=== PATIENT | female | born 1985 | race Caucasian/White ===

== ENCOUNTER 2016-06-09 16:40 | Emergency (ER) | payer SELFPAY ==
--- NOTE | 2016-06-09 17:04 | ER Document Report ---
ED Medical Screen (RME) - General Stated Complaint: INJURED RIGHT THUMB Time seen by provider: 17:01 Mode of Arrival: Ambulatory Information source: Patient Notes: Patient states that she was playing with her child last night when she accidentally jammed her right thumb. Complains of pain to the thumb and is unable to move it. Thumb is swollen but no bruising. I have greeted and performed a rapid initial assessment of this patient. A comprehensive ED assessment and evaluation of the patient, analysis of test results and completion of the medical decision making process will be conducted by additional ED providers. - Related Data Allergies/Adverse Reactions: No Known Allergies Allergy (Verified 06/09/16 17:01) Past Medical History Pulmonary Medical History: Reports: Hx Bronchitis Renal/ Medical History: Denies: Hx Kidney Stones Musculoskeltal Medical History: Denies Hx Fibromyalgia Traumatic Medical History: Denies: Hx Fractures Infectious Medical History: Denies: Hx HIV Past Surgical History: Reports: Hx Section - Immunizations Hx Diphtheria, Pertussis, Tetanus Vaccination: No Physical Exam - Extremities Notes: Right thumb with mild edema and tender to touch. Neurovascular and sensation intact. No bruising noted.
[2016-06-09] MEDS ORDERED: HYDROCODONE/ACETAMINOPHEN 5-325 MG 6 TAB/DSPK PO PRN (18:38)
--- NOTE | 2016-06-09 18:43 | ER Document Report ---
ED Hand/Wrist Injury - General Chief Complaint: Thumb Injury Stated Complaint: INJURED RIGHT THUMB Time seen by provider: 18:38 Mode of Arrival: Ambulatory Information source: Patient TRAVEL OUTSIDE OF THE [place] IN LAST 30 DAYS: No - HPI Patient complains to provider of: right thumb injury Injury to: Thumb Onset: Yesterday Where: Home Timing: Constant Quality of pain: Achy, Fullness, Pressure Severity: Moderate Pain Level: 3 Context: Other Notes: Patient is a 30-year-old female presents to the emergency room complaining of right thumb injury that occurred yesterday evening, states she was using her hands to get up off the floor, when her hand slipped off the edge of the table causing her to bend her thumb backwards, she's had swelling and pain throughout the day today, denies any other pain or injury - Related Data Allergies/Adverse Reactions: No Known Allergies Allergy (Verified 06/09/16 17:01) Past Medical History - General Information source: Patient - Social History Smoking Status: Never Smoker Chew tobacco use (# tins/day): No Frequency of alcohol use: None Drug Abuse: None Family History: None Patient has suicidal ideation: No Patient has homicidal ideation: No Pulmonary Medical History: Reports: Hx Bronchitis Renal/ Medical History: Denies: Hx Kidney Stones, Hx Peritoneal Dialysis Musculoskeltal Medical History: Denies Hx Fibromyalgia Traumatic Medical History: Denies: Hx Fractures Infectious Medical History: Denies: Hx HIV Past Surgical History: Reports: Hx Section - Immunizations Hx Diphtheria, Pertussis, Tetanus Vaccination: No Review of Systems - Review of Systems Constitutional: No symptoms reported EENT: No symptoms reported Cardiovascular: No symptoms reported Respiratory: No symptoms reported Gastrointestinal: No symptoms reported Genitourinary: No symptoms reported Female Genitourinary: No symptoms reported Musculoskeletal: See HPI Skin: No symptoms reported Hematologic/Lymphatic: No symptoms reported Neurological/Psychological: No symptoms reported -: Yes All other systems reviewed and negative Physical Exam - Vital signs Interpretation: Normal - Notes Notes: - General General appearance: Appears well, Alert In distress: None - HEENT Head: Normocephalic, Atraumatic Eyes: Normal Conjunctiva: Normal Extraocular movements intact: Yes Eyelashes: Normal Pupils: PERRL - Respiratory Respiratory status: No respiratory distress - Cardiovascular Rhythm: Regular - Abdominal Inspection: Normal - Back Back: Normal - Extremities General upper extremity: Right hand with swelling and tenderness to the thenar eminence, pain with range of motion testing of the thumb, distal sensation and motor is intact, with brisk capillary refill and 2+ radial pulses General lower extremity: Normal inspection - Neurological Neuro grossly intact: Yes Orientation: AAOx4 [place] Coma Scale Eye Opening: Spontaneous [place] Coma Scale Verbal: Oriented [place] Coma Scale Motor: Obeys Commands [place] Coma Scale Total: 15 - Psychological Associated symptoms: Normal affect, Normal mood - Skin Skin Temperature: Warm Skin Moisture: Dry Skin Color: Normal Course - Re-evaluation Re-evalutation: 06/09/16 18:40 Imaging shows no evidence of injury, I suspect soft tissue injury at the base of the thumb, patient has a commercial splint that she purchased this morning that she has been wearing throughout the day, she was advised to continue wearing this, apply ice and elevate, follow-up with orthopedics in 2-3 days, she will be provided with anti-inflammatory pain medication as well, patient advised to return if symptoms worsen, patient acknowledges understanding and agreement with this plan - Diagnostic Test Radiology reviewed: Image reviewed, Reports reviewed Discharge - Discharge Clinical Impression: Sprain of right thumb Qualifiers: Encounter type: initial encounter Sprain of finger site: metacarpophalangeal joint Qualified Code(s): S63.641A - Sprain of metacarpophalangeal joint of right thumb, initial encounter Condition: Stable Disposition: HOME, SELF-CARE Instructions: Sprained Thumb ([facility]) Additional Instructions: Follow up with your primary care provider and an orthopedic surgeon in one to 2 days. Return to the emergency room immediately if symptoms worsen or any additional concerns. Ice and elevate the affected extremity. Prescriptions: Hydrocodone/Acetaminophen [Hydrocodon-Acetaminophen 5-325] 1 each PO Q6 #20 tablet Ibuprofen [Motrin 600 Mg Tablet] 600 mg PO TID #30 tablet Referrals: MAGGY BLACKWOOD MD [ACTIVE STAFF] - Follow up as needed
== END 2016-06-09 19:17 | disposition home or self-care (01) ==
LOC: ER 16:40
DX: S63.641A Sprain of metacarpophalangeal joint of right thumb, initial encounter (principal); X50.0XXA Overexertion from strenuous movement or load, initial encounter; Y93.89 Activity, other specified; Y92.009 Unspecified place in unspecified non-institutional (private) residence as the place of occurrence of the external cause
CPT/HCPCS: 99283

== ENCOUNTER 2016-06-15 12:15 | Emergency (ER) | payer SELFPAY ==
[2016-06-15 12:24] VITALS: BP 147/99
--- NOTE | 2016-06-15 14:11 | ER Document Report ---
HPI - HPI Patient complains to provider of: right thumb pain Onset: Last week Onset/Duration: Persistent Quality of pain: Achy Pain Level: 4 Context: Patient complains of injuring her right thumb last week. Patient states that she put her weight on a table and slipped causing her thumb to bend backwards. Patient was seen here in the emergency department on 06/09/2016 and advised to return if she had any continued pain or problems. Patient states she is having problems with her Medicaid and her primary doctor would not see her. Patient states that she does not have money to pay out of pocket to see an orthopedic doctor. Patient denies any new injury. Patient is right-hand dominant. Associated Symptoms: Other - Right thumb pain Exacerbated by: Movement Relieved by: Denies Similar symptoms previously: No Recently seen / treated by doctor: Yes - ROS ROS below otherwise negative: Yes Systems Reviewed and Negative: Yes All other systems reviewed and negative - CONSTITUTIONAL Constitutional: DENIES: Fever, Chills - CARDIOVASCULAR Cardiovascular: DENIES: Chest pain - MUSCULOSKELETAL Musculoskeletal: REPORTS: Extremity pain - Right thumb pain, Swelling - Right hand - DERM Skin Color: Normal Skin Problems: None Past Medical History - General Information source: Patient - Social History Smoking Status: Never Smoker Frequency of alcohol use: None Drug Abuse: None Occupation: aestetician Family History: None - Medical History Medical History: Negative Pulmonary Medical History: Reports: Hx Bronchitis Renal/ Medical History: Denies: Hx Kidney Stones, Hx Peritoneal Dialysis Musculoskeltal Medical History: Denies Hx Fibromyalgia Traumatic Medical History: Denies: Hx Fractures Infectious Medical History: Denies: Hx HIV Past Surgical History: Reports: Hx Section - Immunizations Hx Diphtheria, Pertussis, Tetanus Vaccination: No Vertical Provider Document - CONSTITUTIONAL Agree With Documented VS: Yes Exam Limitations: No Limitations General Appearance: WD/WN, No Apparent Distress - INFECTION CONTROL TRAVEL OUTSIDE OF THE [place] IN LAST 30 DAYS: No - HEENT HEENT: Atraumatic, Normocephalic - NECK Neck: Normal Inspection - RESPIRATORY Respiratory: No Respiratory Distress O2 Sat by Pulse Oximetry: 97 - CARDIOVASCULAR Pulses: Normal: Radial - BACK Back: Normal Inspection - MUSCULOSKELETAL/EXTREMETIES Musculoskeletal/Extremeties: Tender - Tenderness along thenar eminence of right hand, Edema - 1+ edema to thenar eminence Notes: Patient with decreased strength in flexion and extension involving right thumb 3 /5, patient unable to fully extend right thumb against resistance. - NEURO Level of Consciousness: Awake, Alert, Appropriate Motor/Sensory: No Sensory Deficit - DERM Integumentary: Warm, Dry Course - Re-evaluation Re-evalutation: 06/15/16 14:[address] Narayan regarding patient presentation, recommends outpatient orthopedic follow-up with hand specialist. Patient encouraged to follow-up with orthopedic DrJeremy for further evaluation. - Vital Signs Vital signs: Temp Pulse Resp BP Pulse Ox 98.2 F 114 H 14 147/99 H 97 06/15/16 12:23 06/15/16 12:23 06/15/16 12:23 06/15/16 12:23 06/15/16 12:23 - Diagnostic Test Radiology reviewed: Reports reviewed - Reviewed x-ray from previous ER visit Discharge - Discharge Clinical Impression: Sprain of right thumb Qualifiers: Encounter type: initial encounter Sprain of finger site: unspecified site Qualified Code(s): S63.601A - Unspecified sprain of right thumb, initial encounter Condition: Stable Disposition: HOME, SELF-CARE Instructions: Sprained Thumb ([facility]), Splint Precautions ([facility]), Ultram ([facility]) Additional Instructions: Return immediately for any new or worsening symptoms Followup with your primary care provider, call tomorrow to make a followup appointment Follow up with orthopedic doctor, call today to make a follow-up appointment. Let them know you were seen in the emergency department and need follow-up. Prescriptions: Tramadol HCl [Ultram 50 mg Tablet] 50 mg PO ASDIR PRN #20 tablet PRN Reason: Referrals: SUZANNE LANGSTON DO [ACTIVE STAFF] - Follow up tomorrow
== END 2016-06-15 14:13 | disposition home or self-care (01) ==
LOC: ER 12:15
DX: S63.601A Unspecified sprain of right thumb, initial encounter (principal); M79.644 Pain in right finger(s); W01.0XXA Fall on same level from slipping, tripping and stumbling without subsequent striking against object, initial encounter
CPT/HCPCS: 99283

== ENCOUNTER → 2017-05-17 | Outpatient (CLI) | payer MEDICAID ==
--- NOTE | 2017-05-17 22:37 | EKG REPORT ---
SEVERITY:- NORMAL ECG - SINUS RHYTHM : Confirmed by: Tala Ro 17-May-2017 22:36:43
== END ==
LOC: OD 12:55
PROVIDERS: ATTEND Physician Assistant
DX: R00.0 Tachycardia, unspecified (principal)
CPT/HCPCS: 93005; 93010

== ENCOUNTER 2017-08-08 20:16 | Emergency (ER) | payer SELFPAY ==
[2017-08-08 20:23] VITALS: BP 131/74
[2017-08-08] MEDS ORDERED: ONDANSETRON 4 MG TAB.RAPDIS PO ONE (21:58)
[2017-08-08] MEDS ORDERED: HYDROCODONE/ACETAMINOPHEN 5-325 MG TABLET PO ONE (21:58)
--- NOTE | 2017-08-08 21:59 | ER Document Report ---
HPI - HPI Patient complains to provider of: fall, pain Pain Level: 4 Context: Patient is a 31-year-old female who comes emergency department for chief complaint of fall, she states she tripped on steps and fell forward, she states this happened about 22 hours ago, she states she fell and landed on her left wrist causing pain and swelling, she also hit her forehead on the step causing a bruise to her forehead and pain in her neck. She denies any other injuries. She states that she went home and slept, then afterwards when the swelling became worse she became more concerned. She denies vomiting, loss of consciousness with the fall, worsening headache, focal numbness or weakness. LMP within the past month. - REPRODUCTIVE Reproductive: REPORTS: : Past Medical History - General Information source: Patient - Social History Smoking Status: Never Smoker Frequency of alcohol use: None Drug Abuse: None Lives with: Family Family History: None Pulmonary Medical History: Reports: Hx Bronchitis Renal/ Medical History: Denies: Hx Kidney Stones, Hx Peritoneal Dialysis Musculoskeltal Medical History: Denies Hx Fibromyalgia Traumatic Medical History: Denies: Hx Fractures Infectious Medical History: Denies: Hx HIV Past Surgical History: Reports: Hx Section - Immunizations Hx Diphtheria, Pertussis, Tetanus Vaccination: No Vertical Provider Document - CONSTITUTIONAL General Appearance: WD/WN, No Apparent Distress - INFECTION CONTROL TRAVEL OUTSIDE OF THE [place] IN LAST 30 DAYS: No - HEENT HEENT: Normal ENT Exam - Unremarkable ENT exam. negative: Atraumatic - Forehead contusion, otherwise no signs of trauma to the head - NECK Neck: Normal Inspection - RESPIRATORY Respiratory: Breath Sounds Normal, No Respiratory Distress - CARDIOVASCULAR Cardiovascular: Regular Rate, Regular Rhythm - GI/ABDOMEN Gastrointestinal: Abdomen Soft, Abdomen Non-Tender - BACK Back: negative: Normal Inspection - Generalized tenderness over the cervical area, nonspecific, no midline tenderness otherwise, no saddle anesthesia, no signs of trauma - MUSCULOSKELETAL/EXTREMETIES Musculoskeletal/Extremeties: MAEW, FROM, Tender - Ecchymosis over the left volar wrist, pain with range of motion, no snuffbox tenderness, normal capillary refill and sensation, normal upper extremity exam otherwise, normal lower extremity exam - NEURO Level of Consciousness: Awake, Alert, Appropriate - DERM Integumentary: Warm, Dry, No Rash Course - Re-evaluation Re-evalutation: Patient with ecchymosis over the volar aspect of the right wrist, x-ray suggestive of small fracture, no neurovascular compromise, discussed with patient, splint placed, orthopedic follow-up discussed and provided. Provided with pain medication, patient was initially tachycardic, this resolved. Patient complaining of pain all over her neck although there is no specific midline tenderness, no neurological deficits, x-ray is unremarkable. She has a small contusion on her forehead but she is now 24 hours post injury and not complaining of any headache, has no concerning reported neurological symptoms, very low suspicion of intracranial pathology. - Vital Signs Vital signs: Temp Pulse Resp BP Pulse Ox 98.8 F 117 H 18 131/74 H 97 08/08/17 20:21 08/08/17 20:21 08/08/17 20:21 08/08/17 20:21 08/08/17 20:21 Procedures - Immobilization left wrist Pre-Proc Neuro Vasc Exam: Normal Immobilizer type: Volar splint Performed by: PCT Post-Proc Neuro Vasc Exam: Normal Alignment checked and good: Yes Discharge - Discharge Clinical Impression: Neck pain Fall Qualifiers: Encounter type: initial encounter Qualified Code(s): W19.XXXA - Unspecified fall, initial encounter Forehead contusion Qualifiers: Encounter type: initial encounter Qualified Code(s): S00.83XA - Contusion of other part of head, initial encounter Left wrist fracture Qualifiers: Encounter type: initial encounter Fracture type: closed Qualified Code(s): S62.102A - Fracture of unspecified carpal bone, left wrist, initial encounter for closed fracture Condition: Stable Disposition: HOME, SELF-CARE Additional Instructions: There appears to be a small fracture in the bone of your left wrist called the trapezium. As result wear the splint, follow-up with the orthopedics referral, call Wednesday to set up your appointment. Take pain medication if needed. Your neck x-rays are normal, your examination does not show any concerning abnormalities otherwise, you should have some soreness in your neck and shoulders from the fall which will probably increase for about a day and then should gradually decline. Return for any concerning symptoms including numbness, passing out, vomiting, severe swelling or pain of the wrist, or any other concerning or worsening symptoms. Prescriptions: Morphine Sulfate [Morphine Ir 15 Mg Tablet] 15 mg PO Q4HP PRN #12 tablet PRN Reason: Referrals: DEBORAH CAPPS MD [ACTIVE STAFF] - Follow up tomorrow
--- NOTE | 2017-08-08 22:41 | RADIOLOGY REPORT (SQ) ---
EXAM DESCRIPTION: CERV SP 4 OR 5 VIEWS COMPLETED DATE/TIME: 08/08/2017 10:23 pm REASON FOR STUDY: fall, pain COMPARISON: None. NUMBER OF VIEWS: Five views. TECHNIQUE: AP, lateral, obliques and odontoid radiographic images acquired of the cervical spine. LIMITATIONS: None. FINDINGS: MINERALIZATION: Normal. ALIGNMENT: Anatomic. VERTEBRAE: Vertebral bodies of normal height. DISCS: No significant osteophytes or sclerosis. Disc height maintained. FORAMINA: No osteophytes or foraminal narrowing. LATERAL AND POSTERIOR ELEMENTS: Facets, lateral masses and spinous processes without significant find ings. HARDWARE: None in the spine. SOFT TISSUES: No masses or calcifications. Lung apices clear. OTHER: No other significant finding. IMPRESSION: NO SIGNIFICANT RADIOGRAPHIC FINDING IN THE CERVICAL SPINE. TECHNICAL DOCUMENTATION: JOB ID: [id number] [place]-72 2010 [employer]- All Rights Reserved Reading location - IP/workstation name: [email or web address]
--- NOTE | 2017-08-08 22:44 | RADIOLOGY REPORT (SQ) ---
EXAM DESCRIPTION: WRIST LEFT 3 VIEWS COMPLETED DATE/TIME: 08/08/2017 10:23 pm REASON FOR STUDY: fall, pain COMPARISON: None. NUMBER OF VIEWS: Three views. TECHNIQUE: AP, lateral, and oblique radiographic images acquired of the left wrist. LIMITATIONS: None. FINDINGS: MINERALIZATION: Normal. BONES: Faint lucency through the mid portion of the trapezium, seen only on 1 projection, possible no ndisplaced fracture. No other fracture or dislocation. No worrisome bone lesions. Normal alignment . SOFT TISSUES: No soft tissue swelling. No foreign body. OTHER: No other significant finding. IMPRESSION: Faint lucency through the mid portion of the trapezium, seen only on 1 projection, possi ble nondisplaced fracture. No other fracture or dislocation. TECHNICAL DOCUMENTATION: JOB ID: [id number] [place]-72 2010 [employer]- All Rights Reserved Reading location - IP/workstation name: [employer]
[2017-08-08] MEDS ORDERED: HYDROCODONE/ACETAMINOPHEN 5-325 MG (6 TAB/ER DISP) PO PRN (22:54)
== END 2017-08-08 23:12 | disposition home or self-care (01) ==
LOC: ER 20:16
PROC: 2W3DX1Z Immobilization of Left Lower Arm using Splint (ICD-10-PCS; principal; 2017-08-08)
DX: S62.102A Fracture of unspecified carpal bone, left wrist, initial encounter for closed fracture (principal); S00.83XA Contusion of other part of head, initial encounter; M25.532 Pain in left wrist; M79.89 Other specified soft tissue disorders; W10.9XXA Fall (on) (from) unspecified stairs and steps, initial encounter
CPT/HCPCS: 99283; 72050; 73110; 29125; S0119

== ENCOUNTER → 2020-01-13 | Outpatient (CLI) | payer BC ==
[2020-01-13 10:54] VITALS: BP 128/73
--- NOTE | 2020-01-13 10:54 | ER RDC ASSESSMENT REPORT ---
Intake - In the Last 14 days Have you traveled outside [place]?: No Have you been in close contact with someone CONFIRMED: Yes Worked in Healthcare?: No - Symptoms Subjective Fever([place] feverish): No Chills: No Muscule Aches: No Runny Nose: No Sore Throat: No Cough (New or worsening chronic cough): No Shortness of breath: No Nausea or Vomiting: No Headache: No Abdominal Pain: No Diarrhea(3 or more loose stools in last 24 hours): No - Do you have any of the following Chronic lung disease: Asthma or emphysema or COPD: No Cystic Fibrosis: No Diabetes: No High Blood Pressure: No Cardiovascular Disease: No Chronic Kidney Disease: No Chronic Liver Disease: No Chronic blood disorder like Sickle Cell Disease: No Weak immune system due to disease or medication: No Neurologic condition that limits movement: No Developmental delay - Moderate to Severe: No Recent (within past 2 weeks) or current : No Morbid Obesity (>100 pounds over ideal weight): No Obesity Comment: Height 5 feet 0 inches weight 160 pounds - Objective Temperature: 98.1 F Pulse Rate: 98 Respiratory Rate: 18 Blood Pressure: 128/73 O2 Sat by Pulse Oximetry: 96 Objective: Given above, testing performed: If Testing Performed: Test Specimen Type Sent to General - General Information source: Patient Notes: Patient here at [facility] for cover testing patient reports having exposure to somebody at place of business that had tested positive for COVID. Patient denies any symptoms at this point. Patient sees Dr. Potter as PCP. - Related Data Allergies/Adverse Reactions: No Known Allergies Allergy (Verified 06/09/16 17:01) Past Medical History - General Information source: Patient - Social History Smoking Status: Never Smoker Family History: None Pulmonary Medical History: Reports: Hx Bronchitis Renal/ Medical History: Denies: Hx Kidney Stones, Hx Peritoneal Dialysis Musculoskeletal Medical History: Denies Hx Fibromyalgia Traumatic Medical History: Denies: Hx Fractures Infectious Medical History: Denies: Hx HIV Past Surgical History: Reports: Hx Section Physical Exam - General General appearance: Appears well, Alert In distress: None Notes: PHYSICAL EXAMINATION: GENERAL: Well-appearing and in no acute distress. HEAD: Atraumatic, normocephalic. EYES: sclera anicteric, conjunctiva are normal. ENT: nares patent. Moist mucous membranes. NECK: Normal range of motion, supple without lymphadenopathy LUNGS: CTAB and equal. No wheezes rales or rhonchi. Respirations even and unlabored lung sounds clear. HEART: Regular rate and rhythm without murmurs ABDOMEN: Soft, nontender, normal bowel sounds, no guarding. EXTREMITIES: Normal range of motion, no pitting edema. No cyanosis. NEUROLOGICAL: Cranial nerves grossly intact. Normal speech. Normal gait. PSYCH: Normal mood, normal affect. SKIN: Warm, Dry, normal turgor, no rashes or lesions noted Diagnostic Results Laboratory Results: Pending cover testing results. Patient provided instructions regarding covid to include: As a person under investigation for Covid 19, the [place] department of Health and Human Services, division of public health advises you to adhere to the following guidance until your test results are reported to you. If your test result is positive, you will receive additional information from your provider and your local health department at that time. Remain at home until you are cleared by the health provider or public health authorities. Keep a log of visitors to your home, notify any visitors to your home of your isolation status. If you plan to move to a new address or leave the county, notify the local health department in your County. Call your doctor or seek care if you have an urgent medical need. Before seeking medical care, call ahead to get instructions from the provider before arriving at the medical office clinic or hospital. Notify them that you are being tested for the virus that causes Covid 19 so that arrangements can be made, as necessary, to prevent transmission to others in the healthcare setting. Next, notify the local health department in your county. If a medical emergency arises and you need to call 911, inform the first responders that you are being tested for the virus that causes Covid 19. Next, notify the local health department in your county. Patient Education/Counseling Counseling/Education: Patient presents with upper respiratory symptoms worrisome for possible Covid 19. Patient does not have emergency worring symptoms such as difficulty breathing, shortness of breath, chest pain, pressure, confusion or cyanosis. Patient appears suitable for discharge. Patient instructed to follow-up with Dr. Potter as needed. Patient's vital signs are stable and patient is nontoxic in appearance. Good return precautions have been discussed with patient, patient verbalized understanding and is agreeable with discharge plan of care at this time. [facility] Discharge - Discharge Clinical Impression: Encounter for screening laboratory testing for COVID-19 virus in asymptomatic patient Condition: Stable Disposition: Home; Selfcare
== END ==
LOC: RDC 09:51
PROVIDERS: ATTEND Nurse Practitioner Family
DX: Z20.828 Contact with and (suspected) exposure to other viral communicable diseases (principal)
CPT/HCPCS: 99201; 99211; U0003; C9803; 87635

== ENCOUNTER → 2020-02-01 | Day surgery (SDC) | payer BC ==
[~2020-02-01] MED LIST: BUPIVACAINE HCL 0.25 % INJ/PF (2.5 MG/1 ML) 30 ML VIAL ONE
[2020-02-01 10:14] LABS: HEMATOCRIT 36.3 % (36.0-47.0); HEMOGLOBIN 12.6 g/dL (12.0-15.5); MEAN CORPUSCULAR HEMOGLOBIN 31.2 pg (27.0-33.4); MEAN CORPUSCULAR HGB CONC 34.6 g/dL (32.0-36.0); MEAN CORPUSCULAR VOLUME 90 fl (80-97); PLATELET COUNT 280 10^3/uL (150-450); RED BLOOD COUNT 4.02 10^6/uL (3.72-5.28); RED CELL DISTRIBUTION WIDTH 13.5 % (11.5-14.0); WHITE BLOOD COUNT 8.1 10^3/uL (4.0-10.5)
[2020-02-01 10:39] VITALS: BP 128/75
--- NOTE | 2020-02-01 13:08 | RADIOLOGY REPORT (SQ) ---
EXAM DESCRIPTION: U/S OB TRANSVAG W/DOPPLER IMAGES COMPLETED DATE/TIME: 02/01/2020 12:59 pm REASON FOR STUDY: had IUD, + test R10.2 PELVIC AND PERINEAL PAIN COMPARISON: None. TECHNIQUE: Transvaginal and transabdominal static and realtime grayscale images acquired of the pelv is. Additional selected spectral and color Doppler images recorded. All images stored on PACs. CLINICAL AGE: 3 week 6 day. [facility]. LIMITATIONS: None. FINDINGS: UTERUS: No visualized intrauterine . IUD present in the endometrial cavity. RIGHT ADNEXA: Normal ovary with normal vascular flow. No adnexal free fluid. No adnexal masses. LEFT ADNEXA: Normal ovary with normal vascular flow. No adnexal free fluid. No adnexal masses. FREE FLUID: None. OTHER: No other significant finding. IMPRESSION: IUD PRESENT WITHIN THE ENDOMETRIAL CAVITY. NO VISUALIZED INTRA- OR EXTRAUTERINE PREGNAN CY. ECTOPIC CANNOT BE EXCLUDED. FOLLOW-UP ULTRASOUND AND SERIAL [facility] LEVELS STRONGLY RECOMMENDED TO ACCURATELY ASSESS STATU S. TECHNICAL DOCUMENTATION: JOB ID: [id number] [employer]- All Rights Reserved Reading location - IP/workstation name: [email or web address]
== END ==
LOC: OROUT 09:52
PROVIDERS: ATTEND Obstetrics & Gynecology
DX: R10.2 Pelvic and perineal pain (principal); Z53.8 Procedure and treatment not carried out for other reasons; Z03.818 Encounter for observation for suspected exposure to other biological agents ruled out
CPT/HCPCS: 36415; 84702; 85027; 81025; 76817; 93976; U0003; C9803; 87635

== ENCOUNTER → 2020-02-03 | Outpatient (CLI) | payer BC | LOC: LAB 10:52 | PROVIDERS: ATTEND Obstetrics & Gynecology | DX: R10.2 Pelvic and perineal pain (principal) | CPT/HCPCS: 36415; 84702 ==

== ENCOUNTER → 2020-02-05 | Outpatient (CLI) | payer BC ==
[2020-02-07 15:36] LABS: ABSOLUTE BASOPHILS # (AUTO) 0.1 10^3/uL (0.0-0.2); ABSOLUTE EOSINOPHILS # (AUTO) 0.2 10^3/uL (0.0-0.6); ABSOLUTE LYMPHOCYTES (AUTO) 1.6 10^3/uL (0.5-4.7); ABSOLUTE MONOCYTES (AUTO) 0.6 10^3/uL (0.1-1.4); ABSOLUTE NEUT (AUTO) 5.7 10^3/uL (1.7-8.2); BASOPHILS % (AUTO) 0.7 % (0-2); EOSINOPHILS % (AUTO) 2.7 % (0-6); HEMATOCRIT 34.9 % (36.0-47.0); HEMOGLOBIN 12.1 g/dL (12.0-15.5); LYMPHOCYTES % (AUTO) 19.6 % (13-45); MEAN CORPUSCULAR HEMOGLOBIN 31.3 pg (27.0-33.4); MEAN CORPUSCULAR HGB CONC 34.6 g/dL (32.0-36.0); MEAN CORPUSCULAR VOLUME 91 fl (80-97); MONOCYTES % (AUTO) 7.5 % (3-13); PLATELET COUNT 302 10^3/uL (150-450); RED BLOOD COUNT 3.86 10^6/uL (3.72-5.28); RED CELL DISTRIBUTION WIDTH 13.7 % (11.5-14.0); SEGMENTED NEUTROPHILS % (AUTO) 69.5 % (42-78); TOTAL CELLS COUNTED % (AUTO) 100 %; WHITE BLOOD COUNT 8.2 10^3/uL (4.0-10.5)
[2020-02-07 15:51] LABS: ALBUMIN 4.4 g/dL (3.5-5.0); ALKALINE PHOSPHATASE 74 U/L (38-126); ANION GAP 10 (5-19); ASPARTATE AMINO TRANSFERASE 19 U/L (14-36); BILIRUBIN,DIRECT 0.2 mg/dL (0.0-0.4); BILIRUBIN,TOTAL 0.4 mg/dL (0.2-1.3); BLOOD UREA NITROGEN 10 mg/dL (7-20); CALCIUM 9.4 mg/dL (8.4-10.2); CARBON DIOXIDE 25 mmol/L (22-30); CHLORIDE 104 mmol/L (98-107); GLUCOSE 87 mg/dL (75-110); POTASSIUM 4.1 mmol/L (3.6-5.0); TOTAL PROTEIN 7.1 g/dL (6.3-8.2)
== END ==
LOC: OD 11:45
PROVIDERS: ATTEND Obstetrics & Gynecology
DX: O20.0 Threatened abortion (principal); Z3A.00 Weeks of gestation of pregnancy not specified
CPT/HCPCS: 36415; 80053; 84702; 85025

== ENCOUNTER → 2020-02-09 | Outpatient (CLI) | payer BC | LOC: OD 13:48 | PROVIDERS: ATTEND Obstetrics & Gynecology | DX: O03.4 Incomplete spontaneous abortion without complication (principal) | CPT/HCPCS: 36415; 84702 ==

== ENCOUNTER 2020-02-13 10:50 | Day surgery (SDC) | payer BC ==
[2020-02-13 11:34] LABS: APPEARANCE,URINE CLOUDY; BILIRUBIN,URINE NEGATIVE (NEGATIVE); COLOR,URINE AMBER; GLUCOSE, URINE NEGATIVE (NEGATIVE); KETONES,URINE NEGATIVE (NEGATIVE); LEUKOCYTE ESTERASE,URINE NEGATIVE (NEGATIVE); NITRITE,URINE POSITIVE (NEGATIVE); PROTEIN,URINE 100 mg/dL (NEGATIVE); UROBILINOGEN,URINE NEGATIVE mg/dL (<2.0)
[2020-02-13] MEDS ORDERED: MIDAZOLAM 2 MG/2 ML INJ ONE ×3 (11:47→12:20)
[2020-02-13] MEDS ORDERED: FENTANYL CITRATE INJ/PF 100 MCG/2 ML AMPUL ONE ×2 (11:47→11:55)
[2020-02-13] MEDS ORDERED: DEXAMETHASONE SOD PHOSPHATE INJ 4 MG/1 ML VIAL ONE ×2 (11:47→11:55)
[2020-02-13] MEDS ORDERED: ONDANSETRON HCL INJ/PF 4 MG/2 ML SDV ONE ×2 (11:47→11:55)
[2020-02-13] MEDS ORDERED: LIDOCAINE 2% INJ-PF (20 MG/ML) 10 ML AMPUL ONE (11:47)
[2020-02-13] MEDS ORDERED: PROPOFOL INJ 200 MG/20 ML VIAL IV ONE ×2 (11:48→11:56)
[2020-02-13] MEDS ORDERED: MORPHINE SULFATE 10 MG/ML INJ ONE ×2 (11:48→11:55)
[2020-02-13] MEDS ORDERED: CEFAZOLIN 2 GM/D5W RTU 2 GM/50 ML RTUPB IV ONE ×2 (12:10→13:00)
[2020-02-13] MEDS ORDERED: FENTANYL CITRATE INJ/PF 250 MCG/5 ML AMPULE ONE (12:59)
[2020-02-13] MEDS ORDERED: PROMETHAZINE HCL INJ 25 MG/1 ML VIAL IV PRN ×2 (13:09)
[2020-02-13] MEDS ORDERED: FENTANYL CITRATE INJ/PF 100 MCG/2 ML AMPUL IV PRN ×3 (13:09)
[2020-02-13] MEDS ORDERED: DIPHENHYDRAMINE HCL 50 MG/ML VIAL IV PRN (13:09)
[2020-02-13] MEDS ORDERED: OXYCODONE-ACETAMINOPHEN 5-325 MG TABLET PO PRN ×4 (13:09→13:52)
[2020-02-13] MEDS ORDERED: MORPHINE SULFATE 10 MG/ML INJ IV PRN (13:09)
[2020-02-13] MEDS ORDERED: MEPERIDINE HCL/PF INJ 25 MG/1 ML DISP.SYRIN IV PRN (13:09)
[2020-02-13] MEDS ORDERED: RINGERS SOLUTION,LACTATED 1,000 ML IV PRN (13:52)
[2020-02-13] MEDS ORDERED: IBUPROFEN 800 MG TABLET PO PRN (13:52)
[2020-02-13] MEDS ORDERED: KETOROLAC TROMETHAMINE INJ/PF 30 MG/1 ML SDV IV PRN (13:52)
--- NOTE | 2020-02-13 14:01 | Operative Report ---
Operative Report DATE OF SURGERY: 02/13/20 PREOPERATIVE DIAGNOSIS: Pelvic pain, positive test POSTOPERATIVE DIAGNOSIS: Same, ectopic , hemoperiteneum OPERATION: Diagnostic laparoscopy with lysis of adhesion evacuation of hemoperitoneum and left salpingectomy left cystectomy SURGEON: SAFIA BAUM 1ST POLE PEELING MACHINE OPERATOR: ELVA CANAS ANESTHESIA: GA TISSUE REMOVED OR ALTERED: Left fallopian tube and ovarian mass COMPLICATIONS: None ESTIMATED BLOOD LOSS: Evacuated approximately 500 cc of old blood INTRAOPERATIVE FINDINGS: Hemoperitoneum noted upon entry, several adhesions of the blood to the anterior abdominal wall, left fallopian tube and ovary with hemorrhagic cyst and mass attached, right fallopian tube and ovary were normal in appearance PROCEDURE: Patient was taken to the operating room prepared and draped in normal sterile fashion in a dorsal lithotomy position. Under sterile conditions and In-N-Out cath was performed of approximately 150 cc of clear urine. A sterile speculum was placed into the vagina and the cervix was located and grasped with a single- tooth tenaculum Hulka clamp was placed through the cervix for uterine manipulation without difficulty and the single-tooth tenaculum was removed. Sterile speculum was removed, gloves were changed and attention was turned to the upper portion of the case. A 5 mm incision was made at the umbilicus through which under using the Optiview technique a 5 mm trocar was placed into the peritoneal cavity with confirmation of placement of visualization of omentum and bowel. The trocar insert was removed and the camera was introduced once more the abdomen was inflated with approximately 2 L of CO2 gas. The above findings were noted. 5 mm trocar was placed approximately 10 cm on the left of the umbilicus. The suction shop tailor was introduced and began suctioning of the hemoperitoneum away so that better visualization could be accomplished and the adhesions were broken with blunt dissection using the suction shop tailor. The right fallopian tube and ovary were located in the blood was suctioned away noting a normal appearance. The left fallopian tube was and left ovary were located. Is obvious evidence of a hemorrhagic cystic mass here. Most likely associated with an ectopic . A 10 mm port was then placed on the patient's right approximately 10 cm on the right side of the umbilicus. The mass was then elevated using an atraumatic grasper. A [place] LigaSure was used to ligate the mass from the pelvic sidewall. As the mass was being freed the ovary was exposed more underneath and the portion of the ovary that did remain looked very normal in appearance. The mass was completely ligated using the LigaSure. And the Endo Catch bag was then placed introduced through the 10 mm port in the specimen was placed in the Endo Catch bag. Cement was then removed through that port. We then come completely did the suction irrigation of the hemoperitoneum until I felt that I had been been able to obtain as much of the old blood as I could. The upper abdomen was inspected the liver was normal in appearance the bowel was also normal and no evidence of trauma. I then concluded the case and removed all instruments and removed all trochars deflating the abdomen through the trochars before they were removed completely. The 10 mm site was closed with 2 interrupted sutures of 0 Vicryl. Was closed at all 3 sites with 4-0 Vicryl. Patient tolerated procedure well sponge lap and needle counts were correct x2. Clamp was removed prior at the end of the case. The patient was taken to PACU in stable condition
--- NOTE | 2020-02-13 14:05 | Discharge Summary ---
Discharge Summary (SDC) - Discharge Final Diagnosis: Left ovarian mass Probable ectopic ruptured Date of Surgery: 02/13/20 Discharge Date: 02/13/20 Condition: Stable Prescriptions: Oxycodone HCl/Acetaminophen [Percocet 5-325 mg Tablet] 1 tab PO Q4HP PRN #20 tablet PRN Reason: Ibuprofen [Motrin 800 mg Tablet] 800 mg PO NOW PRN #60 tablet PRN Reason: Referrals: SAFIA BAUM MD [Primary Care Provider] - Discharge Diet: As Tolerated Respiratory Treatments at Home: Deep Breathing/Coughing Discharge Activity: Balance Activity w/Rest, No Lifting/Push/Pulling, Pelvic Rest Home Care Assistance: None Needed Report the Following to Your Physician Immediately: Shortness of Breath, Nausea, Vomiting, Increase in Pain, Fever over 101 Degrees
[2020-02-13] MEDS ORDERED: ROCURONIUM BROMIDE INJ 50 MG/5 ML VIAL IV ONE (14:29)
[2020-02-13] MEDS ORDERED: SUCCINYLCHOLINE CHLORIDE INJ 200 MG/10 ML VIAL ONE (14:29)
[2020-02-13] MEDS ORDERED: NEOSTIGMINE METHYLSULFATE 10 MG/10 ML VIAL ONE (14:29)
[2020-02-13] MEDS ORDERED: GLYCOPYRROLATE 1 MG/5 ML VIAL ONE (14:29)
[2020-02-13] MEDS ORDERED: OXYCODONE-ACETAMINOPHEN 5-325 MG TABLET ONE (14:45)
--- NOTE | 2020-02-13 15:09 | Discharge Summary ---
Discharge Summary (SDC) - Discharge Final Diagnosis: pelvic pain ovarian mass ectopic Date of Surgery: 02/13/20 Discharge Date: 02/13/20 Condition: Stable Forms: ASU Anesthesia D/C Instruction, Discharge POC-Surgical Service Treatment or Instructions: MONITOR FOR BLEEDING, FEVER 101F OR GREATER, TAKE PAIN MEDICATIONS WITH FOOD, PELVIC REST (NOTHING VAGINAL), FINISH ENTIRE PRESCRIPTION OF ANITBIOTICS Prescriptions: Oxycodone HCl/Acetaminophen [Percocet 5-325 mg Tablet] 1 tab PO Q4HP PRN #20 tablet PRN Reason: Sulfamethoxazole/Trimethoprim [Bactrim Ds Tablet] 1 each PO BID #20 tablet Ibuprofen [Motrin 800 mg Tablet] 800 mg PO NOW PRN #60 tablet PRN Reason: Referrals: SAFIA BAUM MD [Primary Care Provider] - Respiratory Treatments at Home: Deep Breathing/Coughing Discharge Activity: Activity As Tolerated, Balance Activity w/Rest, No Driving, No Lifting Over 10 Pounds, No Lifting/Push/Pulling, Pelvic Rest, Slowly Increase Activity, Supervised Activity, No tub bath Home Care Assistance: None Needed Report the Following to Your Physician Immediately: Shortness of Breath, Nausea, Vomiting, Increase in Pain, Fever over 101 Degrees, Unusual Bleeding, Redness, Swelling, Warmth, Increased Soreness, Increased Vaginal Bleed, Large Clots
[2020-02-13] MEDS ORDERED: IBUPROFEN 800 MG TABLET ONE (15:29)
[2020-02-13 16:08] VITALS: BP 108/64
== END 2020-02-13 16:00 | disposition home or self-care (01) ==
LOC: OROUT 10:50
PROVIDERS: ATTEND Obstetrics & Gynecology
DX: O00.90 Unspecified ectopic pregnancy without intrauterine pregnancy (principal); R10.2 Pelvic and perineal pain; K66.1 Hemoperitoneum; N83.9 Noninflammatory disorder of ovary, fallopian tube and broad ligament, unspecified; E66.9 Obesity, unspecified; Z03.818 Encounter for observation for suspected exposure to other biological agents ruled out
CPT/HCPCS: 59151; 36415; 84702; 81001; 88305 ×2; 00840; U0003; J2250; J3490 ×3; J1100; J3010 ×2; J2270; J2710; J0330; J2405; J2704; J0690; C9803; 840; 87635